=== PATIENT | female | born 1985 | race Caucasian/White ===

== ENCOUNTER 2017-07-07 20:04 | Emergency (ER) | payer MEDICAID ==
[~2017-07-07] VITALS: Ht 162.6 cm; Wt 60.5 kg
[~2017-07-07 20:04] MED LIST: AZIT250T94 PO; D-ME118S6 PO; D-ME473S18 PO; FERR240T9 PO; IBUP-1542 PO; IBUP800T25 PO; PREN-39 PO
[2017-07-07 21:08] VITALS: Ht 162.6 cm; Wt 60.5 kg
[2017-07-07] MEDS ORDERED: FIORICET PO (23:58)
[2017-07-08] MEDS ORDERED: ACET/BUTAL/CAFF TAB PO ONE
--- NOTE | 2017-07-08 00:27 | ERD ---
ER Documentation Chief Complaint Date/Time DATE: 07/08/17 TIME: 00:25 Chief Complaint dizziness/headache since this AM HPI This is a 31-year-old female with a history of migraines presenting to the emergency department stating that she has a migraine. Patient complains of moderate headache, associated with nausea and photophobia. She denies any vomiting. Patient states that she has not taken any medications.. Patient states that she has a history of murmurs that she has still follow-up with a casino manager ROS All systems reviewed and are negative except as per history of present illness. Medications Home Meds Active Scripts Acetamin/Butalbital/Caffeine* (Fioricet*) [id number] Tab, 1 TAB PO Q6H Y for PAIN, #5 TAB Prov:DUNCAN BRUCE PA-C 07/07/17 Ibuprofen* (Motrin*) 600 Mg Tab, 600 MG PO Q6, #15 TAB Prov:ELEN YEE MD 06/03/16 Dextromethorphan Hb-Promethazine Hcl (Promethazine DM Syrup) 473 Ml Syrup, 5 ML PO Q6H Y for COUGH, #4 OZ Prov:ELEN YEE MD 06/03/16 Azithromycin* (Zithromax*) 250 Mg Tablet, 250 MG PO .ZPACK DIRECTED, #6 TAB TAKE 500 MG (2 TABS) THE FIRST DAY THEN 250 MG (1 TAB) DAYS 2-5 Prov:ELEN YEE MD 06/03/16 Ibuprofen* (Motrin*) 600 Mg Tab, 600 MG PO Q6, #14 TAB Prov:ELEN YEE MD 12/17/15 Dextromethorphan Hb-Promethazine Hcl (Promethazine DM Syrup) 180 Ml Syrup, 5 ML PO Q6H Y for COUGH, #4 OZ Prov:ELEN YEE MD 12/17/15 Azithromycin* (Zithromax*) 250 Mg Tablet, 250 MG PO .ZPACK DIRECTED, #6 TAB TAKE 500 MG (2 TABS) THE FIRST DAY THEN 250 MG (1 TAB) DAYS 2-5 Prov:ELEN YEE MD 12/17/15 Ibuprofen* (Motrin*) 800 Mg Tab, 800 MG PO Q6H Y for PAIN AND OR ELEVATED TEMP, #30 TAB Prov:DARRIUS PEREZ MD 12/14/15 Reported Medications Ferrous Gluconate (Iron) 1 Tab Tablet, 1 TAB PO AM 06/06/15 Vits W-Ca,Fe,Fa(<1MG) ( Vitamins) 1 Tab Tablet, 1 TAB PO AM 06/06/15 Allergies Allergies: Coded Allergies: No Known Drug Allergies (Unverified Allergy, Unknown, 06/06/15) PMhx/Soc Medical and Surgical Hx: pt denies Medical Hx, pt denies Surgical Hx History of Surgery: No Anesthesia Reaction: No Hx Neurological Disorder: No Hx Respiratory Disorders: No Hx Cardiac Disorders: No Hx Psychiatric Problems: No Hx Miscellaneous Medical Probl: No Hx Alcohol Use: No Hx Substance Use: No Hx Tobacco Use: No Smoking Status: Never smoker Physical Exam Vitals Vital Signs Date Time Temp Pulse Resp B/P Pulse Ox O2 Delivery O2 Flow Rate FiO2 07/07/17 21:08 98.3 50 20 119/64 99 Physical Exam GENERAL: well-developed/well-nourished, in no apparent distress, non-toxic appearing HENT: NC/AT, bilateral tympanic membrane is normal with good cone of light, nares patent, oropharynx clear without exudates EYES: Conjunctiva normal, PERRLA, EOMI, no nystagmus noted NECK: Supple, no lymphadenopathy PULM: CTA bilaterally, no rales, rhonchi, or wheezing heard CV: Normal S1S2, RRR, good capillary refill GI: Soft, non-distended, normal bowel sounds, non-tender BACK: No midline tenderness, no masses, No CVAT EXT: No clubbing, cyanosis, or edema NEURO: Alert and orientated to person, place, and time. CN II-IIX intact. Gait and coordination were normal. 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 My differential diagnoses include tension, migraine, and cluster headache, overuse medication headache, subarachnoid hemorrhage, meningitis, stroke. Pain relief Fioricet was given in the ED with some improvement. Neurology exam was normal and I don't recommend a CT scan at this time hemodynamically stable and neurovascularly intact. Prescriptions Fioricet#10 were given. Discussed to follow up with a primary care physician in the next couple days. Return to the ER if condition worsens or not improving as expected. Patient agreed and understood this plan. Departure Diagnosis: Primary Impression: Headache Condition: Stable Patient Instructions: Self-Care for Headaches, Preventing Migraine Headaches: Medications and Lifestyle Changes, Headache, Migraine (Classical) Referrals: NO PRIMARY,CARE PHYSICIAN (PCP) Additional Instructions: Return to this facility TOMORROW for a repeat exam.Return sooner if your condition worsens before then. Take all medicines as directed. DUNCAN BRUCE PA-C Jul 08, 2017 00:27
[2017-07-08 00:52] LABS: URINE BLOOD (Dip) POC Negative (NEGATIVE)
[2017-07-08 01:02] VITALS: BP 102/69; PULSE 60; RESP 16; TEMP 98.1
[2017-07-08 06:31] LABS: URINE BLOOD (Dip) POC Negative (NEGATIVE)
== END 2017-07-08 01:01 | disposition home or self-care (01) ==
LOC: FTE 20:04
DX: R51 Headache (principal)
CPT/HCPCS: 81003; 93005; Z7502; Z7610

== ENCOUNTER 2017-08-28 19:52 | Emergency (ER) | payer MEDICAID ==
[~2017-08-28] VITALS: Ht 162.6 cm; Wt 60.4 kg
[~2017-08-28 19:52] MED LIST changes: +FIORICET PO
[2017-08-28 19:57] VITALS: Ht 162.6 cm; Wt 60.4 kg
[2017-08-28] MEDS ORDERED: KETOROLAC 15 MG INJ IV STA (22:44)
[2017-08-28] MEDS ORDERED: LIDOCAINE/MYLANTA 40 ML BTL PO STA (22:44)
[2017-08-28] MEDS ORDERED: SOD CHLORIDE 0.9% 1,000 ML IV ONE (23:00)
[2017-08-28] MEDS ORDERED: PANTOPRAZOLE 40 MG INJ IV ONE (23:00)
--- NOTE | 2017-08-28 23:25 | RADRPT ---
PROCEDURE: US Abdomen (right upper quadrant). CLINICAL INDICATION: Right upper quadrant abdomen pain. TECHNIQUE: Multiple real-time longitudinal and transverse images of the right upper quadrant of th e abdomen were acquired utilizing a curved array transducer. Images were reviewed on a high-resoluti on PACS workstation. COMPARISON: None FINDINGS: The liver is normal in size and normal in echogenicity. There is no focal hepatic lesion. Color Doppler and pulsed Doppler sonography demonstrate normal a ntegrade flow in the portal vein. The gallbladder is normal with no stones or wall thickening. There is no pericholecystic fluid kathryn ection. The bile ducts are normal with the common bile duct measuring 0.8 mm in diameter. The visualized portions of the pancreas are unremarkable with obscuration of the tail of the pancrea s. No free fluid is present. The right kidney measures 10.2 x 3.3 x 4.1 cm. There is normal echogenicity of the right kidney. There is no perinephric fluid collection. No hydronephrosis, mass, or calculus is seen. IMPRESSION: 1. Unremarkable right upper quadrant abdomen ultrasound. RPTAT: QQ .Adrian Carver MD, Date Time Electronically viewed and signed by .Adrian Carver MD, on 08/28/2017 23:25 .R/
[2017-08-28 23:35] LABS: BASOPHILS % 0.4 % (0.0-2.0); EOSINOPHILS # 0.1 10^3/ul (0.0-0.5); EOSINOPHILS % 1.3 % (0.0-7.0); HEMATOCRIT 39.4 % (37.0-47.0); HEMOGLOBIN 13.1 g/dl (12.0-16.0); LYMPHOCYTES # 2.7 10^3/ul (0.8-2.9); LYMPHOCYTES % 38.2 % (15.0-51.0); MEAN CORPUSCULAR HEMOGLOBIN 29.8 pg (29.0-33.0); MEAN CORPUSCULAR HGB CONC 33.2 g/dl (32.0-37.0); MEAN CORPUSCULAR VOLUME 89.7 fl (82.0-101.0); MEAN PLATELET VOLUME 12.3 fl (7.4-10.4); MONOCYTE # 0.4 10^3/ul (0.3-0.9); NEUTROPHIL # 3.8 10^3/ul (1.6-7.5); NEUTROPHILS % 53.8 % (39.0-77.0); PLATELET COUNT 180 10^3/UL (140-415); RED BLOOD COUNT 4.39 10^6/ul (4.20-5.40); RED CELL DISTRIBUTION WIDTH 11.9 % (11.5-14.5); WHITE BLOOD COUNT 7.1 10^3/ul (4.8-10.8)
[2017-08-28 23:47] LABS: ADD UMIC NO; UR ASCORBIC ACID NEGATIVE (NEGATIVE); UR BILIRUBIN (Dip) NEGATIVE (NEGATIVE); UR BLOOD (Dip) NEGATIVE (NEGATIVE); UR CLARITY CLEAR (CLEAR); UR COLOR YELLOW (YELLOW); UR GLUCOSE (Dip) NEGATIVE (NEGATIVE); UR KETONES (Dip) NEGATIVE (NEGATIVE); UR LEUKOCYTE ESTERASE (Dip) NEGATIVE Leu/ul (NEGATIVE); UR NITRITE (Dip) NEGATIVE (NEGATIVE); UR SPECIFIC GRAVITY (Dip) 1.018 (1.003-1.030); UR TOTAL PROTEIN (Dip) NEGATIVE (NEGATIVE); UR UROBILINOGEN (Dip) NEGATIVE (NEGATIVE)
[2017-08-28 23:56] LABS: ALBUMIN 4.5 g/dl (3.3-4.9); ALBUMIN/GLOBULIN RATIO 1.5; BILIRUBIN,INDIRECT 0.4 mg/dl (0-1.1); BILIRUBIN,TOTAL 0.4 mg/dl (0.2-1.3); CREATININE 0.6 mg/dl (0.44-1.00); POTASSIUM 3.5 mmol/L (3.5-5.1); TOTAL PROTEIN 7.5 g/dl (6.1-8.1)
--- NOTE | 2017-08-29 00:09 | ERD ---
ER Documentation Chief Complaint Chief Complaint epigastric pain on and off x 3 months, diarrhea x 3 days HPI This 32-year-old female presents to emergency department for evaluation of epigastric pain, patient reports pain is predominantly located in epigastrium but radiates to right upper quadrant, patient also reports diarrhea, reports feeling nauseous, has only been able to tolerate clear liquids today. Denies fever, chills, or blood in stool. Patient denies past medical history of gastritis, reports that she has been symptomatic on and off for the last 3 months. ROS All systems reviewed and are negative except as per history of present illness. Medications Home Meds Active Scripts Ranitidine Hcl* (Zantac*) 150 Mg Tablet, 150 MG PO BID Y for EPIGASTRIC PAIN, # 30 TAB Prov:REYNASANCHEZ 08/29/17 Acetamin/Butalbital/Caffeine* (Fioricet*) [id number] Tab, 1 TAB PO Q6H Y for PAIN, #5 TAB Prov:DUNCAN BRUCE PA-C 07/07/17 Ibuprofen* (Motrin*) 600 Mg Tab, 600 MG PO Q6, #15 TAB Prov:ELEN YEE MD 06/03/16 Dextromethorphan Hb-Promethazine Hcl (Promethazine DM Syrup) 473 Ml Syrup, 5 ML PO Q6H Y for COUGH, #4 OZ Prov:ELEN YEE MD 06/03/16 Azithromycin* (Zithromax*) 250 Mg Tablet, 250 MG PO .ZPACK DIRECTED, #6 TAB TAKE 500 MG (2 TABS) THE FIRST DAY THEN 250 MG (1 TAB) DAYS 2-5 Prov:ELEN YEE MD 06/03/16 Ibuprofen* (Motrin*) 600 Mg Tab, 600 MG PO Q6, #14 TAB Prov:ELEN YEE MD 12/17/15 Dextromethorphan Hb-Promethazine Hcl (Promethazine DM Syrup) 180 Ml Syrup, 5 ML PO Q6H Y for COUGH, #4 OZ Prov:ELEN YEE MD 12/17/15 Azithromycin* (Zithromax*) 250 Mg Tablet, 250 MG PO .ZPACK DIRECTED, #6 TAB TAKE 500 MG (2 TABS) THE FIRST DAY THEN 250 MG (1 TAB) DAYS 2-5 Prov:ELEN YEE MD 12/17/15 Ibuprofen* (Motrin*) 800 Mg Tab, 800 MG PO Q6H Y for PAIN AND OR ELEVATED TEMP, #30 TAB Prov:DARRIUS PEREZ MD 12/14/15 Reported Medications Ferrous Gluconate (Iron) 1 Tab Tablet, 1 TAB PO AM 06/06/15 Vits W-Ca,Fe,Fa(<1MG) ( Vitamins) 1 Tab Tablet, 1 TAB PO AM 06/06/15 Allergies Allergies: Coded Allergies: No Known Drug Allergies (Unverified Allergy, Unknown, 06/06/15) PMhx/Soc Medical and Surgical Hx: pt denies Medical Hx, pt denies Surgical Hx History of Surgery: No Anesthesia Reaction: No Hx Neurological Disorder: No Hx Respiratory Disorders: No Hx Cardiac Disorders: No Hx Psychiatric Problems: No Hx Miscellaneous Medical Probl: No Hx Alcohol Use: No Hx Substance Use: No Hx Tobacco Use: No Smoking Status: Never smoker Physical Exam Vitals Vital Signs Date Time Temp Pulse Resp B/P Pulse Ox O2 Delivery O2 Flow Rate FiO2 08/28/17 19:57 98.3 60 20 129/61 98 Physical Exam Const: Well-nourished well-hydrated well-appearing 32-year-old female obvious discomfort no acute distress Eyes: Normal Conjunctiva ENT: Normal External Ears, Nose and Mouth. Mucous membranes moist Resp: Clear to auscultation bilaterally Cardio: Regular rate and rhythm, no murmurs Abd: Abdomen is soft, symmetric, epigastric tenderness, right upper quadrant tenderness negative Briones's sign, no CVA tenderness Neur: Awake and alert Psych: Normal Mood and Affect Result Diagram: 08/28/17231608/28/172316 Results 24 hrs Laboratory Tests Test 08/28/17 23:17 White Blood Count 7.110^3/ul Red Blood Count 4.3910^6/ul Hemoglobin 13.1g/dl Hematocrit 39.4% Mean Corpuscular Volume 89.7fl Mean Corpuscular Hemoglobin 29.8pg Mean Corpuscular Hemoglobin Concent 33.2g/dl Red Cell Distribution Width 11.9% Platelet Count 35341^3/UL Mean Platelet Volume 12.3fl Neutrophils % 53.8% Lymphocytes % 38.2% Monocytes % 6.0% Eosinophils % 1.3% Basophils % 0.4% Nucleated Red Blood Cells % 0.0/100WBC Neutrophils # 3.810^3/ul Lymphocytes # 2.710^3/ul Monocytes # 0.410^3/ul Eosinophils # 0.110^3/ul Basophils # 0.010^3/ul Nucleated Red Blood Cells # 0.010^3/ul Urine Color YELLOW Urine Clarity CLEAR Urine pH 5.0 Urine Specific Commerce 1.018 Urine Ketones NEGATIVEmg/dL Urine Nitrite NEGATIVEmg/dL Urine Bilirubin NEGATIVEmg/dL Urine Urobilinogen NEGATIVEmg/dL Urine Leukocyte Esterase NEGATIVELeu/ul Urine Hemoglobin NEGATIVEmg/dL Urine Glucose NEGATIVEmg/dL Urine Total Protein NEGATIVEmg/dl Sodium Level 140mmol/L Potassium Level 3.5mmol/L Chloride Level 103mmol/L Carbon Dioxide Level 27mmol/L Anion Gap 14 Blood Urea Nitrogen 16mg/dl Creatinine 0.60mg/dl Glucose Level 98mg/dl Calcium Level 9.0mg/dl Total Bilirubin 0.4mg/dl Direct Bilirubin 0.00mg/dl Indirect Bilirubin 0.4mg/dl Aspartate Amino Transf (AST/SGOT) 19IU/L Alanine Aminotransferase (ALT/SGPT) 36IU/L Alkaline Phosphatase 79IU/L Total Protein 7.5g/dl Albumin 4.5g/dl Globulin 3.00g/dl Albumin/Globulin Ratio 1.50 Lipase 62U/L Current Medications Medications (Trade) Dose Ordered Sig/Drew Route PRN Reason Start Time Stop Time Status Last Admin Dose Admin Miscellaneous Medication (Gi Cocktail (2)) 40 ml ONCE STAT PO 08/28/17 22:44 08/28/17 22:47 DC 08/28/17 23:32 Pantoprazole (Protonix Iv) 40 mg ONCE ONCE IV 08/28/17 23:00 08/28/17 23:01 DC 08/28/17 23:32 Ketorolac Tromethamine 15 mg 15 mg ONCE STAT IV 08/28/17 22:44 08/28/17 22:47 DC 08/28/17 23:32 Sodium Chloride (NS) 1,000 ml @ 1,000 mls/hr Q1H ONCE IV 08/28/17 23:00 08/28/17 23:59 DC 08/28/17 23:35 Interpretation text CBC shows no evidence of hemorrhage or infection Chemistry shows no evidence of significant electrolyte abnormalities or renal insufficiency Liver function tests shows no evidence of acute biliary or hepatic dysfunction Lipase shows no evidence of acute pancreatitis . Procedures/MDM PROCEDURE: US Abdomen (right upper quadrant). CLINICAL INDICATION: Right upper quadrant abdomen pain. TECHNIQUE: Multiple real-time longitudinal and transverse images of the right upper quadrant of the abdomen were acquired utilizing a curved array transducer. Images were reviewed on a high-resolution PACS workstation. COMPARISON: None FINDINGS: The liver is normal in size and normal in echogenicity. There is no focal hepatic lesion. Color Doppler and pulsed Doppler sonography demonstrate normal antegrade flow in the portal vein. The gallbladder is normal with no stones or wall thickening. There is no pericholecystic fluid collection. The bile ducts are normal with the common bile duct measuring 0.8 mm in diameter. The visualized portions of the pancreas are unremarkable with obscuration of the tail of the pancreas. No free fluid is present. The right kidney measures 10.2 x 3.3 x 4.1 cm. There is normal echogenicity of the right kidney. There is no perinephric fluid collection. No hydronephrosis, mass, or calculus is seen. IMPRESSION: 1. Unremarkable right upper quadrant abdomen ultrasound. Electronically viewed and signed by .Elen Carver MD, on 08/28/2017 23:25 This 32-year-old female presents to emergency department with epigastric pain intermittently for 3 months, diarrhea 2 days, epigastric pain radiates to right upper quadrant does not radiate to back, patient reports feeling nauseous without vomiting, only tolerating clear liquids today. Denies any possibility of contaminated food. Emergency room course includes history and physical exam , findings are suspicious for a viral gastritis, versus early cystitis. Plan to ultrasound gallbladder, and obtain diagnostic labs, laboratory values are unremarkable, no evidence of acute infection, or hemorrhage, electrolyte imbalance or renal insufficiency. No pancreatitis or hepatitis. Urinalysis negative for evidence of infection. Ultrasound as read by radiologist unremarkable right upper quadrant abdominal ultrasound. Patient's pain was treated in emergency department with a liter of normal saline, GI cocktail, and Protonix, and Toradol plan to discharge patient home with 150 mg twice daily 10 days, follow-up with primary care physician for full evaluation of epigastric pain. Return to emergency department if symptoms fail to improve as anticipated, diet discussed, decrease spicy foods, fatty foods, patient reports pain with drinking coffee, and patient was instructed to discontinue coffee until followed up with primary physician. Patient is stable with no new complaints during ER course, clinically there is no current evidence to suggest acute HI sepsis, acute abdomen, or any other emergent condition appearing to require further evaluation or hospitalization. I feel the patient is stable for discharge at this time. I have discussed results, examination findings, the treatment plan with the patient and family present prior to discharge. Indications for emergent reevaluation, side effects of medication were also discussed. All questions were answered. Patient verbalizes understanding and agrees with plan of care. Departure Diagnosis: Primary Impression: Epigastric pain Condition: Good Patient Instructions: Epigastric Pain (Uncertain Cause) Additional Instructions: Thank you for for coming to [facility] for your care today. Please ask your nurse or provider if you have questions about your care today and do not leave until all your questions have been answered. Please use any medications given as directed and follow-up with your doctor (or the doctor you were referred to) in the next 2-3 days. If you do not have a primary care doctor you may follow up at the community hospital (listed below). You may also use motrin and tylenol as needed for fever and/or pain unless instructed otherwise by your provider or nurse. Indications for more urgent follow-up have been discussed, but you may return to the Emergency Department at ANY time for any worrisome or worsening symptoms. If you have abdominal pain, please know that no test or exam you received is perfect and you should follow up within 8 hours for continued pain. If you had any imaging studies today, such as an X-Ray or CT Scan, these studies will be reviewed later by a radiologist. You will be called if there are important findings that were not identified today, so make sure the contact information you provided at registration is correct. If you received any narcotic pain control medicine today, such as Vicodin, Morphine or Dilaudid, your coordination and judgment may be affected for a number of hours. Please do not drive or operate heavy machinery, and you may want someone to assist you at home. If you were given a prescription for narcotic medication, be aware that it is very addictive- use sparingly and only if necessary. SANCHEZ ORELLANA Aug 29, 2017 00:09
[2017-08-29] MEDS ORDERED: RANI150T9 PO (00:23)
[2017-08-29 00:48] VITALS: BP 128/78; PULSE 64; RESP 18; TEMP 98
== END 2017-08-29 00:53 | disposition home or self-care (01) ==
LOC: FTE 19:52
DX: R10.13 Epigastric pain (principal)
CPT/HCPCS: 36415; 76705; 80053; 81003; 83690; 85025; 96374; 96375; C9113; J1885; J7030; Z7502; Z7610

== ENCOUNTER 2018-01-20 15:55 | Emergency (ER) | END 2018-01-20 16:30 | disposition home or self-care (01) ==

== ENCOUNTER 2018-11-18 16:44 | Emergency (ER) | payer OTHER ==
[~2018-11-18] VITALS: Wt 72.5 kg
[~2018-11-18 16:44] MED LIST changes: +AZIT250T PO; -AZIT250T94 PO; +BENZ-6 PO; -IBUP800T25 PO; +IBUP800T48 PO; +IPRA15SP NS; +RANI150T35 PO
[2018-11-18 16:54] VITALS: BP 120/57; PULSE 78; RESP 19
[2018-11-18] MEDS ORDERED: IBUPROFEN 600 MG TAB PO STA (17:27)
[2018-11-18] MEDS ORDERED: ACETAMINOPHEN 500 MG TAB PO STA (17:27)
[2018-11-18] MEDS ORDERED: METHYLPREDNISOLONE ACET 80 MG/ML 1 ML IM ONE (17:30)
[2018-11-18] MEDS ORDERED: DEXAMETHASONE 10 MG/ML 1 ML INJ IM ONE (17:30)
[2018-11-18] MEDS ORDERED: METHYLPREDNISOLONE 40 MG INJ IM ONE (18:00)
[2018-11-18] MEDS ORDERED: METHYLPREDNISOLONE ACET 40 MG/ML 1 ML IM ONE ×2 (18:00)
[2018-11-18] MEDS ORDERED: AMOX1TAB9 PO (18:40)
[2018-11-18] MEDS ORDERED: IBUP800T48 PO (18:41)
[2018-11-18] MEDS ORDERED: ACET500C5 PO (18:43)
--- NOTE | 2018-11-18 19:24 | ERD ---
ER Documentation Chief Complaint Chief Complaint bib self, cc: right ear pain x 2 weeks, HPI 33 year-old [female] ear pain coming in today with Chief Complaint: Ear pain History of Present Illness: Patient being accompanied today by spouse. Reporting right ear pain times 2 weeks. Associated symptoms include sore throat, body aches, face pain, fatigue, dizziness. Patient denies sick contacts. Review of systems: All systems were reviewed and are negative except for what is indicated in the history of present illness. Past Medical History: Gastritis Social History: [Patient denies tobacco, alcohol, elicit drug use] Medications: [None] Allergies: [NKDA] Social Concerns: Denies ROS All systems reviewed and are negative except as per history of present illness. 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 11/18/18 Amoxicillin/Potassium Clav (Amox-Clav 500-125 mg Tablet) 500-125 mg Tab, 1 TAB PO Q8 for sinus infection for 10 Days, #30 TAB Prov:SIOMARA YING V [employer]LESS STORE MANAGER 11/18/18 Ipratropium Lorane (Ipratropium Lorane) 15 Ml Erie, 15 ML NS BID for 2 squrits nostril for 5 Days, #15 SPRAY Prov:REYNA,SANCHEZ 01/20/18 Benzonatate* (Tessalon Perle*) 100 Mg Capsule, 100 MG PO Q8H PRN for COUGH for 3 Days, #20 CAP Prov:REYNA,SANCHEZ 01/20/18 Ranitidine Hcl* (Zantac*) 150 Mg Tablet, 150 MG PO BID PRN for EPIGASTRIC PAIN, #30 TAB Prov:REYNA,SANCHEZ 08/29/17 Acetamin/Butalbital/Caffeine* (Fioricet*) [id number] Tab, 1 TAB PO Q6H PRN for PAIN, #5 TAB Prov:DUNCAN BRUCE PA-C 07/07/17 Ibuprofen* (Motrin*) 600 Mg Tab, 600 MG PO Q6, #15 TAB Prov:ELEN YEE MD 06/03/16 Dextromethorphan Hb-Promethazine Hcl (Promethazine DM Syrup) 473 Ml Syrup, 5 ML PO Q6H PRN for COUGH, #4 OZ Prov:ELEN YEE MD 06/03/16 Azithromycin* (Zithromax*) 250 Mg Tablet, 250 MG PO .ZPACK DIRECTED, #6 TAB TAKE 500 MG (2 TABS) THE FIRST DAY THEN 250 MG (1 TAB) DAYS 2-5 Prov:ELEN YEE MD 06/03/16 Ibuprofen* (Motrin*) 600 Mg Tab, 600 MG PO Q6, #14 TAB Prov:ELEN YEE MD 12/17/15 Dextromethorphan Hb-Promethazine Hcl (Promethazine DM Syrup) 180 Ml Syrup, 5 ML PO Q6H PRN for COUGH, #4 OZ Prov:ELEN YEE MD 12/17/15 Azithromycin* (Zithromax*) 250 Mg Tablet, 250 MG PO .ZPACK DIRECTED, #6 TAB TAKE 500 MG (2 TABS) THE FIRST DAY THEN 250 MG (1 TAB) DAYS 2-5 Prov:ELEN YEE MD 12/17/15 Ibuprofen* (Motrin*) 800 Mg Tab, 800 MG PO Q6H PRN for PAIN AND OR ELEVATED TEMP, #30 TAB Prov:DARRIUS PEREZ MD 12/14/15 Reported Medications Ferrous Gluconate (Iron) 1 Tab Tablet, 1 TAB PO AM 06/06/15 Vits W-Ca,Fe,Fa(<1MG) ( Vitamins) 1 Tab Tablet, 1 TAB PO AM 06/06/15 Allergies Allergies: Coded Allergies: No Known Drug Allergies (Unverified Allergy, Unknown, 06/06/15) PMhx/Soc Medical and Surgical Hx: pt denies Medical Hx, pt denies Surgical Hx History of Surgery: No Anesthesia Reaction: No Hx Neurological Disorder: No Hx Respiratory Disorders: No Hx Cardiac Disorders: No Hx Psychiatric Problems: No Hx Miscellaneous Medical Probl: No Hx Alcohol Use: No Hx Substance Use: No Hx Tobacco Use: No Sm[facility] History: diabetes, coronary disease Physical Exam Vitals Vital Signs Date Temp Pulse Resp B/P (MAP) Pulse Ox O2 O2 Flow FiO2 Time Delivery Rate 11/18/18 98.8 18:50 11/18/18 100.4 78 19 120/57 100 16:54 (78) Physical Exam Const: No acute distress Head: Atraumatic, tender to palpation on frontal and maxillary sinuses Eyes: Normal Conjunctiva ENT: Normal External Ears, Nose and Mouth. No erythema noted to tympanic membranes bilaterally. Erythema noted to pharynx, positive exudates. Neck: Full range of motion. No meningismus. No lymphadenopathy. Resp: Clear to auscultation bilaterally Cardio: Regular rate and rhythm, no murmurs Abd: Soft, non tender, non distended. Normal bowel sounds Skin: No petechiae or rashes Back: No midline or flank tenderness Ext: No cyanosis, or edema Neur: Awake and alert. No neurological deficits. Psych: Normal Mood and Affect Results 24 hrs Current Medications Medications Dose Sig/Drew Start Time Status Last (Trade) Ordered Route PRN Stop Time Admin Dose Reason Admin 1,000 mg ONCE STAT 11/18/18 DC 11/18/18 Acetaminophen PO 17:27 17:35 (Tylenol 11/18/18 17:30 Tab) Ibuprofen 600 mg ONCE STAT 11/18/18 DC 11/18/18 (Motrin) PO 17:27 17:36 11/18/18 17:30 6 mg ONCE ONCE 11/18/18 DC 11/18/18 Dexamethasone IM 17:30 17:36 (Decadron) 11/18/18 17:31 60 mg ONCE ONCE 11/18/18 DC Methylprednis IM 17:30 olone 11/18/18 17:31 Acetate (Depo-Medrol 80 Mg/ml 1 ml) 60 mg ONCE ONCE 11/18/18 DC Methylprednis IM 18:00 olone 11/18/18 18:00 Acetate (Depo-Medrol 40 Mg/ml 1 ml) 60 mg ONCE ONCE 11/18/18 Cancel Methylprednis IM 18:00 olone Sodium 11/18/18 18:01 Succinate (Solu-Medrol) 60 mg ONCE ONCE 11/18/18 DC 11/18/18 Methylprednis IM 18:00 17:54 olone 11/18/18 18:01 Acetate (Depo-Medrol 40 Mg/ml 1 ml) Procedures/MDM Patient with complaint of ear pain ED course includes a thorough examination and history. Records also includes testing for group A strep and influenza. Otherwise healthy patient presenting with constellation of symptoms likely representing acute bacterial sinusitis as characterized by history, physical exam findings [lab findings]. Negative influenza and strep testing. No respiratory distress, otherwise relatively well appearing and nontoxic. Patient educated on diagnoses, prescriptions, follow-up care, return precautions. Strict return precautions given for worsening condition; questions answered discharge. We will give antibiotics due to course of illness being over 10 days. More likely a bacterial etiology versus viral etiology. Disposition for discharge with followup in 2-3 days with PCP/clinic. Departure Diagnosis: Primary Impression: Acute maxillary sinusitis Additional Impressions: Acute sinusitis with symptoms > 10 days Acute frontal sinusitis Condition: Stable Patient Instructions: Sinusitis, Abx Tx [facility] Usted se torres hecho un examen mdico de control que le indica que no est en gabriele condicin que requiera tratamiento urgente en el Departamento de Emergencia. Un estudio ms profundo y el tratamiento de hoover condicin pueden esperar sin ningn riesgo hasta que usted sea atendida/o en el consultorio de hoover mdico o gabriele clnica. Es responsabilidad suya arreglar gabriele monica para el seguimiento del chris. MANEJO DE CONDICIONES NO URGENTES EN EL FUTURO 1) Si usted tiene un mdico de atencin primaria: Usted debera llamar a hoover mdico de atencin primaria antes de venir al departamento de emergencia. Despus de las horas de consultorio, hoover doctor o hoover asociado/a est disponible por telfono. El mdico o enfermero de philip en el servicio telefnico puede asesorarle por lacho medio para atender el problema, o chris contrario se puede programar gabriele monica. 2) Si usted no tiene un mdico de atencin primaria: Llame al mdico o clnica de referencia que aparece abajo georgiana las horas de consultorio para hacer gabriele monica para que le vean. CLINICAS: [facility] [phone] [facility] [phone] [facility] [phone] [place] [id number] [phone] [place] [address] [phone] [facility]. [phone] [address] [facility]. [facility] () Usted se torres hecho un examen mdico de control que le indica que no est en gabriele condicin que requiera tratamiento urgente en el Departamento de Emergencia. Un estudio ms profundo y el tratamiento de hoover condicin pueden esperar sin ningn riesgo hasta que usted sea atendida/o en el consultorio de hoover mdico o gabriele clnica. Es responsabilidad suya arreglar gabriele monica para el seguimiento del chris. MANEJO DE CONDICIONES NO URGENTES EN EL FUTURO 1) Si usted tiene un mdico de atencin primaria: Usted debera llamar a hoover mdico de atencin primaria antes de venir al departamento de emergencia. Despus de las horas de consultorio, hoover doctor o hoover asociado/a est disponible por telfono. El mdico o enfermero de philip en el servicio telefnico puede asesorarle por lacho medio para atender el problema, o chris contrario se puede programar gabriele monica. 2) Si usted no tiene un mdico de atencin primaria: Llame al mdico o condado institucions de referencia que aparece abajo georgiana las horas de consultorio para hacer gabriele monica para que le vean. SI USTED NO PUEDE PAGAR PARA ANANYA UN MEDICO puede ir a: [facility] [address] [place] [address] [facility] [address] [place] [address] [facility] [address] [place] [address] [facility] [address] [place], [place] [id number] Additional Instructions: Call your primary care doctor TOMORROW for an appointment during the next 2-3 days.See the doctor sooner or return here if your condition worsens before your appointment time. You will need reevaluation to ensure antibiotics are working. ibuprofen and acetaminophen for pain and/or fever. SIOMARA YING NP Nov 18, 2018 19:23
== END 2018-11-18 18:51 | disposition home or self-care (01) ==
LOC: FTE 16:44
DX: J01.00 Acute maxillary sinusitis, unspecified (principal); J01.10 Acute frontal sinusitis, unspecified
CPT/HCPCS: 87400; 87880; 96372; J1030; J1100; Z7502; Z7610; J1040; J2920